=== PATIENT | male | born 1995 | race Caucasian/White ===

== ENCOUNTER 2017-08-19 01:43 | Emergency (ER) | payer OTHER ==
[~2017-08-19] VITALS: Ht 188 cm; Wt 86.3 kg
[~2017-08-19 01:43] MED LIST: LATU40TA PO; ZOLO50TA PO
[2017-08-19 01:47] VITALS: BP 142/88; PULSE 97; RESP 16; TEMP 98.5; O2SAT 95
[2017-08-19] MEDS ORDERED: SERT-132 PO (02:25)
--- NOTE | 2017-08-19 02:40 | RADRPT ---
EXAM DATE/TIME: 08/19/2017 02:22 [place] COMPARISON: No previous studies available for comparison. INDICATIONS : Right hand pain after punching a wall tonight. MEDICAL HISTORY : None. SURGICAL HISTORY : None. ENCOUNTER: Initial ACUITY: 1 day PAIN SCORE: 8/10 LOCATION: Right hand. FINDINGS: 3 views of the right hand revealed acute fracture involving the fourth metacarpal. Fracture is perpen dicular to the long axis of the bone. Is mid-diaphyseal in nature. There is 7 mm of dorsal displaceme nt of the distal fracture fragment relative the proximal fracture fragment. Soft tissue swelling note d. CONCLUSION: Acute fourth metacarpal fracture. Roel Grey Jr., MD on August 19, 2017 at 2:38 Board Certified Radiologist. This report was verified electronically.
--- NOTE | 2017-08-19 02:51 | PD ---
HPI Chief Complaint: Injury Time Seen by Provider: 02:45 Travel History International Travel<30 days: No Contact w/Intl Traveler<30days: No Traveled to known affect area: No History of Present Illness HPI The patient is a 22-year-old right-hand dominant male that at 1:00 this morning punched a wall with her being behind the wall and energy right hand. The patient noted immediate pain and swelling in the area. His pain description/ intensity is a sharp pain and an 8/10. PFSH Past Medical History Anxiety: Yes Depression: Yes Diminished Hearing: No Neurologic: Yes (FOOTBALL HEAD INJ. GRADE 3 CONCUSION 2008 W AMNESIA X 24 HOURS ) Immunizations Current: Yes Tetanus Vaccination: Unknown Influenza Vaccination: No ?: Not Past Surgical History Surgical History: No Previous Surgery Social History Alcohol Use: Yes (DAILY BEER) Tobacco Use: Yes (7-10) Substance Use: Yes (occ THC) Allergies-Medications (Allergen,Severity, Reaction): Coded Allergies: No Known Allergies (Verified Adverse Reaction, Unknown, 08/19/17) Reported Meds & Prescriptions Reported Meds & Active Scripts Active Reported Sertraline (Sertraline HCl) 50 Mg Tab 50 Mg PO DAILY Physical Exam Narrative GENERAL: Well-nourished, well-developed patient in moderate apparent distress with his right hand pain. His vital signs are normal. SKIN: Focused skin assessment warm/dry. HEAD: Normocephalic. EYES: No scleral icterus. No injection or drainage. NECK: Supple, trachea midline. No JVD or lymphadenopathy. CARDIOVASCULAR: Regular rate and rhythm without murmurs, gallops, or rubs. RESPIRATORY: Breath sounds equal bilaterally. No accessory muscle use. GASTROINTESTINAL: Abdomen soft, non-tender, nondistended. MUSCULOSKELETAL: No cyanosis, or edema. Good capillary refill is present distally on all fingers. He has slight numbness on the third and fourth fingers to pinprick but the rest of the pinprick testing is normal. BACK: Nontender without obvious deformity. No CVA tenderness. Data Data Last Documented VS Vital Signs Date Time Temp Pulse Resp B/P (MAP) Pulse Ox O2 Delivery O2 Flow Rate FiO2 08/19/17 01:47 98.5 97 16 142/88 (106) 95 Orders Orders Hand, Complete ([id number]) (08/19/17 ) [facility] Medical Decision Making Medical Screen Exam Complete: Yes Emergency Medical Condition: Yes Medical Record Reviewed: Yes Interpretation(s) X-rays of the right hand show 7 mm dorsal displacement and about equal ulnar displacement of the fourth metacarpal. There is a transverse fracture of the mid fourth metacarpal. Differential Diagnosis Fracture hand, contusion hand Narrative Course The patient needs to follow-up with Dr. Carlos Dobbs, he should call his office later on this morning to set up an appointment. He should elevate his hand above his heart. He should continue to use ice packs the next 48 hours. He is given Percocet 5 for pain. He is given a fluffball splint. He is counseled about impulse control. Physician Communication Physician Communication I discussed the patient with Dr. Dobbs. Diagnosis Primary Impression: Fracture of fourth metacarpal bone Additional Instructions: As we discussed, follow-up with Dr. Carlos Dobbs, I gave he is number and address to you. Call him later this morning to set up an appointment. Elevate your right hand above your heart. As we discussed, in the future practice impulse control. Med/Other Pt SpecificInfo: Prescription(s) given Scripts Oxycodone-Acetaminophen (Percocet) 5-325 mg Tab 1-2 TAB PO Q4H Y for PAIN, #30 TAB 0 Refills Prov: Manolo Gant MD 08/19/17 Disposition: 01 DISCHARGE HOME Condition: Stable Manolo Gant MD Aug 19, 2017 02:51
[2017-08-19] MEDS ORDERED: PERC5TAB12 PO (03:03)
[2017-08-19 03:14] VITALS: BP 140/82; TEMP 98.5
[2017-08-21] MEDS ORDERED: IBUP1TAB7 PO (13:21)
== END 2017-08-19 03:39 | disposition home or self-care (01) ==
LOC: PHED 01:43
DX: S62.304A Unspecified fracture of fourth metacarpal bone, right hand, initial encounter for closed fracture (principal); F41.8 Other specified anxiety disorders; F17.210 Nicotine dependence, cigarettes, uncomplicated; W22.8XXA Striking against or struck by other objects, initial encounter
CPT/HCPCS: 73130; 99283

== ENCOUNTER → 2017-08-21 | Day surgery (SDC) | payer OTHER ==
[~2017-08-21] VITALS: Ht 188 cm; Wt 86.5 kg
[~2017-08-21] MED LIST changes: +BUPIVACAINE HCL PF 0.5% 30 ML VIAL ONE; +CHLORHEXIDINE GLUCONATE 2 % 1 PACK (2 CLOTHS) TOPICAL PRN; +DEXT 5%-NACL 0.45% 1000 ML INJ 1,000 ML IV SCH; +IBUP1TAB7 PO; +INSULIN HUMAN REGULAR 1,000 UNITS/10 ML VIAL SQ PRN; +LACTATED RINGER'S 1000 ML IV PRN; -LATU40TA PO; +METOPROLOL TARTRATE 25 MG TAB PO PRN; +MIDAZOLAM HCL 2 MG/2 ML VIAL ONE; +PERC5TAB12 PO; +POVIDONE IODINE 5% (ANTISEPSIS KIT) 4 APPLICATIONS EACH NARE PRN; +SERT-132 PO; +SODIUM CHLORID 0.9% 500 ML IV PRN; -ZOLO50TA PO; +ceFAZolin 1,000 MG/NS 100 ML IV SCH
[2017-08-21 10:19] LABS: HEMATOCRIT 46.1 % (39.0-51.0); HEMOGLOBIN 15.3 GM/DL (13.0-17.0); MEAN CELL VOLUME 93.2 FL (80.0-100.0); MEAN CORPUSCULAR HEMOGLOBIN 30.9 PG (27.0-34.0); MEAN CORPUSCULAR HGB CONC 33.1 % (32.0-36.0); MEAN PLATELET VOLUME 8.4 FL (7.0-11.0); PLATELET COUNT 277 TH/MM3 (150-450); RED BLOOD COUNT 4.95 MIL/MM3 (4.50-5.90); RED CELL DISTRIBUTION WIDTH 11.8 % (11.6-17.2); WHITE BLOOD COUNT 6.2 TH/MM3 (4.0-11.0)
--- NOTE | 2017-08-21 13:19 | HHI.PR ---
Immediate Post Op Note Procedure Date: Aug 21, 2017 Pre Op Diagnosis: (1) Fracture of fourth metacarpal bone Post Op Diagnosis: (1) Fracture of fourth metacarpal bone Surgeon: Amparo Dobbs Orthopedic Shoe Maker(s): None Procedure: ORIF right fourth metacarpal Anesthesia: General Drains: None Tourniquet time (min at mmHg) 61 minutes at 220mm Hg Patient to: PACU Patient Condition: Good Implant/Devices: SEE IMPLANT LOG (if applicable) Date/Time of Procedure: SEE SURGICAL CARE RECORD Amparo Dobbs MD Aug 21, 2017 13:19
--- NOTE | 2017-08-21 14:02 | MP ---
cc: Amparo Dobbs MD DATE OF OPERATION: 08/21/2017 DATE OF OPERATION: 08/21/2017 PREOPERATIVE DIAGNOSIS: Unstable transverse fracture of the right fourth metacarpal shaft. POSTOPERATIVE DIAGNOSIS: Unstable transverse fracture of the right fourth metacarpal shaft. PROCEDURE PERFORMED: Open reduction and internal fixation of the right fourth metacarpal shaft. ANESTHESIA: General. SURGEON: Amparo Dobbs MD INDICATION FOR PROCEDURE: A 22-year-old male who sustained an injury to his right fourth metacarpal when he punched an inanimate object, sustaining a fracture. FINDINGS: At the completion of the procedure, the fracture was anatomically reduced, help in place with a 6-hole plate using the [employer] Modular Hand set. TOURNIQUET TIME: 61 minutes. DESCRIPTION OF PROCEDURE: The patient was seen preoperatively, where the site and side were identified and marked. The patient was then taken to the operating room and placed in a supine position. His identity was checked against the arm band and the consent form, site and side confirmed, timeout called prior to beginning the procedure, the right upper extremity was prepped with Hibiclens and draped in the usual fashion. The hair over the area to be operated on was clipped. After adequate prepping and draping, the area to be incised was outlined with a marking pen as a longitudinal incision directly over the fracture site. The arm exsanguinated and the tourniquet inflated to 220 mmHg. Bupivacaine 0.5% plain was then used to anesthetize the ulnar nerve dorsally and palmarly, and additionally, anesthetic was injected using the 0.5% Bupivacaine at the end of the procedure into the soft tissues. Once the nerve blocks had been placed, a #15 blade was used to make the incision down through skin, down to subcutaneous tissue under loop magnification using sharp and blunt dissection, retracting the tendons and exposed the fracture site. The periosteum was stripped off of the bone and the fracture site itself was cleansed of debris and clot. The wound was irrigated and then anatomically reduced. A 6-hole plate using the [employer] Modular Hand set was used to fix the fracture and stabilize it. The hole checked to depth and placed a screw. One screw was offset center in order to give some compression. Once all 6 screws had been placed, the mini C-arm, which was used during the placing of the screws to ascertain the length and adequacy of the position. The mini C-arm then at the end was used to confirm the adequacy of the reduction. The wound was then copiously irrigated with saline and closed with 4-0 Vicryl to the deep dermal layer and 4-0 nylon to the skin. Tourniquet was released after 61 minutes of tourniquet time, pressure was applied. After several minutes, there was no evidence of any oozing. The dressing was applied using Povidone-iodine ointment with Adaptic, Telfa, 4 x 4s, hand wrap and a palmarly based splint to keep the hand in position of function from the PIP joints all the way to below the elbow. Once the dressing was in place, the patient was taken from the operating room to the recovery room in satisfactory condition, having tolerated the procedure well. POSTOPERATIVE INSTRUCTIONS: Include keeping the arm elevated, keeping the area clean and dry, and returning in several days for followup. MD ALEXSANDRA Santo/DELISA , 01:26 PM , 02:01 PM
[2017-08-21 14:50] VITALS: BP 119/72; PULSE 62; RESP 16; TEMP 98; O2SAT 99
== END | disposition home or self-care (01) ==
LOC: PHSDC 08:59
PROVIDERS: ATTEND Specialist
DX: S62.324A Displaced fracture of shaft of fourth metacarpal bone, right hand, initial encounter for closed fracture (principal); W22.8XXA Striking against or struck by other objects, initial encounter
CPT/HCPCS: 01830; 26615; 76000; 85027; C1713; J0690; J2250; J3010; J7120